=== PATIENT | female | born 1990 | race Caucasian/White ===

== ENCOUNTER 2016-12-04 08:16 | Emergency (ER) | payer MEDICAID, OTHER ==
--- NOTE | 2016-12-04 09:24 | EDDOCDS ---
Nurse's Notes [facility] Name: Kassie Adrian Age: 26 yrs Sex: Female : 1990 Arrival Date: 12/04/2016 Time: 08:16 Bed Triage 2 Private MD: Diagnosis: Cellulitis and abscess of mouth Presentation: 12/04 08:43 Presenting complaint: Patient states: right lower and pain and swelling right jawline. [facility] Adult Sepsis Screening: The patient does not have new or worsening altered mentation. Patient's respiratory rate is less than 22. Systolic blood pressure is greater than 100. Patient has a qSOFA score of 0- Negative Sepsis Screen. Suicide/Homicide risk assessment- the patient denies having any suicidal and/or homicidal ideations and does not present with any other emotional, behavioral or mental health complaints. 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 Transition of care: patient was not received from another setting of care. 08:43 Acuity: YOLANDA Level 4 [facility] 08:43 Method Of Arrival: Walkin/Carried/Asstd [facility] Triage Assessment: 08:44 General: Appears in no apparent distress. 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 BCP once daily - PMHx: Anxiety; - PSHx: Left lower leg ORIF; D & C; - Social history: No barriers to communication noted, The patient speaks fluent Montenegrin, Smoking status: Patient uses tobacco products, current some day smoker. - : The pt / caregiver states he / she is not on anticoagulants. Home medication list is obtained from the patient. - Exposure Risk Screening:: None identified. Vital Signs: 08:31 BP 157 / 102; Pulse 88; Resp 18; Temp 97.6(O); Pulse Ox 99% on R/A; Weight 113.4 kg ct3 (R); Height 5 ft. 0 in. (152.40 cm) (R); Pain 6/10; 08:31 Body Mass Index 48.82 (113.40 kg, 152.40 cm) ct3 Vitals: 08:44 Log In Time: December 04, 2016 at 08:16. [facility] ED Course: 08:18 Patient visited by Montondo, Aren, Reg. pm4 08:18 Patient moved to Waiting pm4 08:33 Patient visited by Poly Marie PCA. ct3 08:43 Patient moved to Triage 2 mk4 08:44 Triage Initiated mk4 08:45 Topher Alamo PA is PHCP. btw 08:45 Xiao Dunlap MD is Attending Physician. btw 08:45 Patient visited by Topher Alamo PA. btw 08:55 Your, Dentist is Referral Physician. btw Order Results: There are currently no results for this order. Outcome: 08:57 Discharge ordered by Provider. btw 09:23 Patient left the ED. kcs Signatures: Tanna Lara RN RN kcs Topher Alamo PA PA btw Poly Marie PCA PEDIATRIC RN ct3 Mary Mcleod RN RN mk4 Aren Stanley, Reg Reg pm4 MTDDarren
--- NOTE | 2016-12-04 09:24 | EDDOCDS ---
Physician Documentation [facility] Name: Kassie Adrian Age: 26 yrs Sex: Female : 1990 Arrival Date: 12/04/2016 Time: 08:16 Bed Triage 2 Private MD: Disposition: 12/04/16 08:57 Discharged to Home/Self Care. Impression: Cellulitis and abscess of mouth. - Condition is Stable. - Discharge Instructions: Dental Abscess. - Prescriptions for Clindamycin HCl 300 mg Oral Capsule - take 1 capsule by ORAL route every 6 hours; 40 capsule. - Medication Reconciliation, Local Pharmacy Hours form. - Follow up: Your, Dentist; When: Call to arrange an appointment; Reason: Further diagnostic work-up, Recheck today's complaints, Continuance of care. - Problem is new. - Symptoms are unchanged. Historical: - Allergies: PENICILLINS; - Home Meds: 1. BCP once daily - PMHx: Anxiety; - PSHx: Left lower leg ORIF; D & C; - Social history: No barriers to communication noted, The patient speaks fluent Croatian, Smoking status: Patient uses tobacco products, current some day smoker. - : The pt / caregiver states he / she is not on anticoagulants. Home medication list is obtained from the patient. - Exposure Risk Screening:: None identified. 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 0 in. (152.40 cm) (R); Pain 6/10; 08:31 Body Mass Index 48.82 (113.40 kg, 152.40 cm) ct3 MDM: 09:19 Financial registration complete. lg Signatures: Tanna Lara, RN RN Analilia Holloway, Robbi Reg lg Topher Alamo PA PA btw King, Margaret, RN RN mk4 MTDD
--- NOTE | 2016-12-06 10:23 | EDDOCDS ---
Nurse's Notes [facility] Name: Kassie Adrian Age: 26 yrs Sex: Female : 1990 Arrival Date: 12/04/2016 Time: 08:16 Bed Triage 2 Private MD: Diagnosis: Cellulitis and abscess of mouth Presentation: 12/04 08:43 Presenting complaint: Patient states: right lower and pain and swelling right jawline. [facility] Adult Sepsis Screening: The patient does not have new or worsening altered mentation. Patient's respiratory rate is less than 22. Systolic blood pressure is greater than 100. Patient has a qSOFA score of 0- Negative Sepsis Screen. Suicide/Homicide risk assessment- the patient denies having any suicidal and/or homicidal ideations and does not present with any other emotional, behavioral or mental health complaints. 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 Transition of care: patient was not received from another setting of care. 08:43 Acuity: YOLANDA Level 4 [facility] 08:43 Method Of Arrival: Walkin/Carried/Asstd [facility] Triage Assessment: 08:44 General: Appears in no apparent distress. 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 BCP once daily - PMHx: Anxiety; - PSHx: Left lower leg ORIF; D & C; - Social history: No barriers to communication noted, The patient speaks fluent Maldivian, Smoking status: Patient uses tobacco products, current some day smoker. - Family history: Not pertinent. - : The pt / caregiver states he / she is not on anticoagulants. Home medication list is obtained from the patient. - Exposure Risk Screening:: None identified. Screenin:20 Screening information is obtained from the patient. Screening information is obtained kcs from prior medical records. Fall risk: No risks identified. Assistance ADL's: requires no assistance with activities of daily living. Abuse/DV Screen: The patient / caregiver reports he/she is: not in a situation that causes fear, pain or injury. Nutritional screening: No deficits noted. Advance Directives: Currently, there is no health care proxy. There is no living will. home support is adequate. Assessment: 09:20 General: Appears comfortable, well developed, well nourished, well groomed, Behavior is kcs cooperative, pleasant. Pain: Complains of pain in mouth. Awake, alert, oriented. Skin warm and dry. Moves all extremities. Respirations unlabored. No apparent distress. The patient / caregiver is instructed regarding the plan of care and ED course. Physical assessment to be completed by PA/ED. Vital Signs: 08:31 BP 157 / 102; Pulse 88; Resp 18; Temp 97.6(O); Pulse Ox 99% on R/A; Weight 113.4 kg ct3 (R); Height 5 ft. 0 in. (152.40 cm) (R); Pain 6/10; 08:31 Body Mass Index 48.82 (113.40 kg, 152.40 cm) ct3 Vitals: 08:44 Log In Time: December 04, 2016 at 08:16. 4 ED Course: 08:18 Patient visited by Aren Stanley Reg. pm4 08:18 Patient moved to Waiting pm4 08:33 Patient visited by Poly Marie PCA. ct3 08:43 Patient moved to Triage 2 mk4 08:44 Triage Initiated mk4 08:45 Topher Alamo PA is PHCP. btw 08:45 Xiao Dunlap MD is Attending Physician. btw 08:45 Patient visited by Topher Alamo PA. btw 08:55 Your, Dentist is Referral Physician. btw 09:20 Patient has correct armband on for positive identification. kcs 09:20 No IV's were initiated during this patient's visit. No procedures done that require kcs assistance. 10:19 Patient name changed from Kassie\S\M\S\Adrian\S\ to Kassie\S\Yolette\S\Nguyễn. EDMS 10:21 [facility] Payment Agreement was scanned into New Screens and attached to record. lg 12:30 T-Sheet-- Draft Copy was scanned into New Screens and attached to record. gb Order Results: There are currently no results for this order. Outcome: 08:57 Discharge ordered by Provider. btw 09:20 The following High Risk Discharge criteria are identified: None. Discharged to home kcs ambulatory. Condition: stable. Discharge instructions given to patient, Instructed on discharge instructions, follow up and referral plans. medication usage, Demonstrated understanding of instructions, medications, Pt was receptive of discharge instructions/ teaching. No special radiology studies were completed. 09:20 Discharge Assessment: Patient awake, alert and oriented x 3. No cognitive and/or kcs functional deficits noted. Patient verbalized understanding of disposition instructions. Patient awake and alert. patient administered narcotics - no. Property sent home with patient. 09:23 Patient left the ED. kcs Signatures: Dispatcher [employer] EDMS Tanna Lara RN RN kcs Hiwot Wang, Reg Reg gb Analilia Lazcano, Reg Reg lg Topher Alamo PA PA btw Poly Marie, REFRACTORY BRICKLAYER REFRACTORY BRICKLAYER ct3 Mary Mcleod RN RN mk4 Aren Stanley, Reg Reg pm4 Chart Complete [facility]
--- NOTE | 2016-12-06 10:23 | EDDOCDS ---
Physician Documentation [facility] Name: Kassie Adrian Age: 26 yrs Sex: Female : 1990 Arrival Date: 12/04/2016 Time: 08:16 Bed Triage 2 Private MD: Disposition: 12/04/16 08:57 Discharged to Home/Self Care. Impression: Cellulitis and abscess of mouth. - Condition is Stable. - Discharge Instructions: Dental Abscess. - Prescriptions for Clindamycin HCl 300 mg Oral Capsule - take 1 capsule by ORAL route every 6 hours; 40 capsule. - Medication Reconciliation, Local Pharmacy Hours form. - Follow up: Your, Dentist; When: Call to arrange an appointment; Reason: Further diagnostic work-up, Recheck today's complaints, Continuance of care. - Problem is new. - Symptoms are unchanged. Historical: - Allergies: PENICILLINS; - Home Meds: 1. BCP once daily - PMHx: Anxiety; - PSHx: Left lower leg ORIF; D & C; - Social history: No barriers to communication noted, The patient speaks fluent Serbian, Smoking status: Patient uses tobacco products, current some day smoker. - Family history: Not pertinent. - : The pt / caregiver states he / she is not on anticoagulants. Home medication list is obtained from the patient. - Exposure Risk Screening:: None identified. 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 0 in. (152.40 cm) (R); Pain 6/10; 08:31 Body Mass Index 48.82 (113.40 kg, 152.40 cm) ct3 MDM: 09:19 Financial registration complete. lg 10:21 [facility] Payment Agreement was scanned into mohchi and attached to record. lg 12:30 T-Sheet-- Draft Copy was scanned into mohchi and attached to record. gb Signatures: Tanna Lara RN RN Hiwot Kennedy, Reg Reg gb Analilia Lazcano, Reg Reg lg Topher Alamo PA PA btw King, Margaret, RN RN mk4 The chart was reviewed and I authenticate all verbal orders and agree with the evaluation and treatment provided.Attachments: 10:21 [facility] Payment Agreement lg 12:30 T-Sheet-- Draft Copy gb Chart Complete MTDD
--- NOTE | 2016-12-06 10:23 | EDDOCDS ---
Physician Documentation [facility] Name: Kassie Adrian Age: 26 yrs Sex: Female : 1990 Arrival Date: 12/04/2016 Time: 08:16 Bed Triage 2 Private MD: Disposition: 12/04/16 08:57 Discharged to Home/Self Care. Impression: Cellulitis and abscess of mouth. - Condition is Stable. - Discharge Instructions: Dental Abscess. - Prescriptions for Clindamycin HCl 300 mg Oral Capsule - take 1 capsule by ORAL route every 6 hours; 40 capsule. - Medication Reconciliation, Local Pharmacy Hours form. - Follow up: Your, Dentist; When: Call to arrange an appointment; Reason: Further diagnostic work-up, Recheck today's complaints, Continuance of care. - Problem is new. - Symptoms are unchanged. Historical: - Allergies: PENICILLINS; - Home Meds: 1. BCP once daily - PMHx: Anxiety; - PSHx: Left lower leg ORIF; D & C; - Social history: No barriers to communication noted, The patient speaks fluent Kiswahili, Smoking status: Patient uses tobacco products, current some day smoker. - Family history: Not pertinent. - : The pt / caregiver states he / she is not on anticoagulants. Home medication list is obtained from the patient. - Exposure Risk Screening:: None identified. 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 0 in. (152.40 cm) (R); Pain 6/10; 08:31 Body Mass Index 48.82 (113.40 kg, 152.40 cm) ct3 MDM: 09:19 Financial registration complete. lg 10:21 [facility] Payment Agreement was scanned into Yellow Pages and attached to record. lg 12:30 T-Sheet-- Draft Copy was scanned into Yellow Pages and attached to record. gb Signatures: Tanna Lara RN RN Hiwot Kennedy, Reg Reg gb Analilia Lazcano, Reg Reg lg Topher Alamo PA PA btw King, Margaret, RN RN mk4 The chart was reviewed and I authenticate all verbal orders and agree with the evaluation and treatment provided.Attachments: 10:21 [facility] Payment Agreement lg 12:30 T-Sheet-- Draft Copy gb Chart Complete MTDD
== END 2016-12-04 09:23 | disposition home or self-care (01) ==
LOC: M ED 08:16
DX: K08.9 Disorder of teeth and supporting structures, unspecified (principal); F41.9 Anxiety disorder, unspecified; F17.210 Nicotine dependence, cigarettes, uncomplicated; Z79.3 Long term (current) use of hormonal contraceptives; Z88.0 Allergy status to penicillin

== ENCOUNTER 2018-04-27 14:33 | Emergency (ER) | payer MEDICAID ==
[2018-04-27] MEDS: AZITHROMYCIN 250 MG TAB PO (16:35)
== END 2018-04-27 16:35 | disposition home or self-care (01) ==
LOC: M ED 14:33
DX: J02.0 Streptococcal pharyngitis (principal); F17.200 Nicotine dependence, unspecified, uncomplicated; Z88.0 Allergy status to penicillin
CPT/HCPCS: 87880

== ENCOUNTER → 2018-07-09 | Outpatient (REF) | payer MEDICAID ==
[2018-07-09 21:54] LABS: APPEARANCE, URINE HAZY (CLEAR); BACTERIA, URINE AUTO NEGATIVE (NEGATIVE); BILIRUBIN, URINE AUTO NEGATIVE (NEGATIVE); BLOOD, URINE BLOOD NEGATIVE (NEGATIVE); COLOR, URINE YELLOW (YELLOW); GLUCOSE, URINE (UA) AUTO NEGATIVE (NEGATIVE); KETONE, URINE AUTO NEGATIVE (NEGATIVE); LEUKOCYTE ESTERASE, URINE AUTO NEGATIVE (NEGATIVE); MUCUS, URINE SMALL (NEGATIVE); NITRITE, URINE AUTO NEGATIVE (NEGATIVE); PROTEIN, URINE AUTO NEGATIVE (NEGATIVE); RBC, URINE AUTO 1 /HPF (0-3); SPECIFIC GRAVITY URINE AUTO 1.023 (1.002-1.035); SQUAMOUS EPITHELIAL CELL UR AU 3 /HPF (0-6); UROBILINOGEN, URINE AUTO 0.2 mg/dL (0.0-2.0); WBC, URINE AUTO 1 /HPF (0-3)
[2018-07-09 23:17] LABS: CHLAMYDIA DNA AMPLIFICATION NEGATIVE (NEGATIVE); GC DNA AMPLIFICATION NEGATIVE (NEGATIVE)
== END ==
LOC: M LAB REF 21:22
DX: R30.0 Dysuria (principal)
CPT/HCPCS: 81001

== ENCOUNTER → 2018-10-13 | Outpatient (REF) | payer MEDICAID ==
[2018-10-13 19:18] LABS: AMORPHOUS SEDIMENT LARGE (NEGATIVE); APPEARANCE, URINE CLEAR (CLEAR); BACTERIA, URINE AUTO 1+ (NEGATIVE); BILIRUBIN, URINE AUTO NEGATIVE (NEGATIVE); BLOOD, URINE BLOOD NEGATIVE (NEGATIVE); COLOR, URINE YELLOW (YELLOW); GLUCOSE, URINE (UA) AUTO NEGATIVE (NEGATIVE); KETONE, URINE AUTO NEGATIVE (NEGATIVE); LEUKOCYTE ESTERASE, URINE AUTO NEGATIVE (NEGATIVE); NITRITE, URINE AUTO NEGATIVE (NEGATIVE); PROTEIN, URINE AUTO NEGATIVE (NEGATIVE); RBC, URINE AUTO 0 /HPF (0-3); SPECIFIC GRAVITY URINE AUTO 1.014 (1.002-1.035); SQUAMOUS EPITHELIAL CELL UR AU 4 /HPF (0-6); UROBILINOGEN, URINE AUTO 0.2 mg/dL (0.0-2.0); WBC, URINE AUTO 9 /HPF (0-3)
[2018-10-13 22:32] LABS: CHLAMYDIA DNA AMPLIFICATION NEGATIVE (NEGATIVE); GC DNA AMPLIFICATION NEGATIVE (NEGATIVE)
== END ==
LOC: M LAB REF 17:11
DX: N39.0 Urinary tract infection, site not specified (principal); Z20.2 Contact with and (suspected) exposure to infections with a predominantly sexual mode of transmission
CPT/HCPCS: 81001

== ENCOUNTER → 2019-05-02 | Outpatient (REF) | payer MEDICAID ==
[~2019-05-02] MED LIST: ZITHTAB PO
== END ==
LOC: M LAB REF 14:33
PROVIDERS: ATTEND Physician Assistant
DX: J02.9 Acute pharyngitis, unspecified (principal)

== ENCOUNTER → 2022-04-05 | Outpatient (REF) | payer MEDICAID | LOC: M LAB REF 16:33 | PROVIDERS: ATTEND Physician Assistant | DX: R05.9 Cough, unspecified (principal); R50.9 Fever, unspecified ==

== ENCOUNTER → 2023-11-27 | Outpatient (REF) | payer MEDICAID | LOC: M LAB REF 16:27 | PROVIDERS: ATTEND Physician Assistant | DX: B34.9 Viral infection, unspecified (principal) ==